=== PATIENT | female | born 1935 | race Caucasian/White ===

== ENCOUNTER 2018-09-24 10:42 | Emergency (ER) | payer OTHER ==
[~2018-09-24] VITALS: Ht 149.9 cm; Wt 52.2 kg
--- NOTE | 2018-09-24 10:42 | NUR ---
BROUGHT IN BY [facility], PLACED IN BED #3 AND TRIAGED. REPORT GIVEN TO ALEJANDRO
[2018-09-24 10:44] VITALS: BP_SYST 167
--- NOTE | 2018-09-24 10:45 | NUR ---
Patient presented to ER with laceration above right eye, s/p fall. Patient alert and appropraite. Patient states she is a resident of [facility], patient arrived via ALS. Patient afebrile, skin pink, pain 2/10, denies N/V/D. Patient states she tripped while walking with walker.
--- NOTE | 2018-09-24 10:48 | NUR ---
SPKE WITH DAUGHTER ABOUT PTS CARE. DAUGHTER IS GOING TO INFORM [facility] THAT PT WILL NEED RIDE HOME AFTER TREATMENT. DAUGHTER WILL BE AT WORK BUT WILL BE AVAILABLE IF NEEDED
--- NOTE | 2018-09-24 11:01 | NUR ---
DR PAYNE AT BEDSIDE FOR EVALUATION
--- NOTE | 2018-09-24 11:04 | NUR ---
WHEN PT IS DISCHARGED, PLEASE CALL [facility]CAR[facility] AT [phone] PER DAUGHTER
[2018-09-24] MEDS ORDERED: LIDOCAINE 1% 10 MG/ML, 20 ML MDV INJ ONE (11:15)
--- NOTE | 2018-09-24 11:25 | NUR ---
DR PAYNE PERFORMING SUTURING AT BEDSIDE, PT TOLERATING IT WELL.
--- NOTE | 2018-09-24 12:01 | NUR ---
CALL PLACED TO CLAUS, SHE WILL BE PICKING UP PT IN 30 MINUTES
--- NOTE | 2018-09-24 12:30 | NUR ---
Site to right forehead cleansed with sterile water. Site measures approximately 2.5 cm . dressing applied non-adherent gauze & covered. Tetanus vaccination current.
[2018-09-24] MEDS ORDERED: ACETAMINOPHEN 500 MG TABLET PO ONE (12:45)
[2018-09-24 13:25] VITALS: BP_SYST 160
--- NOTE | 2018-09-24 13:25 | NUR ---
Patient given written and verbal discharge instructions and verbalizes understanding. ER MD discussed with patient the results and treatment provided. Patient in stable condition. ID arm band removed. No Rx given. Patient educated on pain management and to follow up with PMD. Pain Scale 2/10 tolerable for patient. Opportunity for questions provided and answered. Medication side effect fact sheet provided. Patient picked up by Daughter in law.
== END 2018-09-24 13:25 | disposition home or self-care (01) ==
LOC: SED 10:42
DX: S01.111A Laceration without foreign body of right eyelid and periocular area, initial encounter (principal); I10 Essential (primary) hypertension; W01.198A Fall on same level from slipping, tripping and stumbling with subsequent striking against other object, initial encounter; Y93.89 Activity, other specified; Y92.89 Other specified places as the place of occurrence of the external cause; Y99.8 Other external cause status
CPT/HCPCS: 12052; 99284; J2001